=== PATIENT | female | born 1990 | race Caucasian/White ===

== ENCOUNTER 2023-04-06 03:47 | Inpatient (IN) | payer MEDICAID, OTHER ==
[~2023-04-06] VITALS: Ht 160 cm; Wt 81.6 kg
[2023-04-06] MEDS ORDERED: METH-818 PO (05:45)
[2023-04-06] MEDS ORDERED: OXYTOCIN 30 UNITS/500ML NS PMX 500 ML IV SCH ×2 (06:00→07:00)
[2023-04-06] MEDS ORDERED: METHYLERGONOVINE MALEATE 0.2 MG/ML IM PRN (06:00)
[2023-04-06] MEDS ORDERED: LACTATED RINGERS 1,000 ML IV SCH (06:00)
[2023-04-06 06:24] LABS: HEMATOCRIT. 30.4 % (36.0-48.0); HEMOGLOBIN. 10.5 g/dL (12.0-16.0); MEAN CORPUSCULAR HEMOGLOBIN 27.4 pg (28.0-32.0); MEAN CORPUSCULAR VOLUME 79.2 fL (81.0-99.0); MEAN PLATELET VOLUME 10.3 fl (7.4-10.4); PLATELET 202 x1000/uL (130-400); RED BLOOD CELL COUNT 3.84 mill/uL (4.2-5.4); RED CELL DISTRIBUTION WIDTH 14.1 % (11.6-14.6)
[2023-04-06] MEDS ORDERED: IBUPROFEN 400MG TABLET PO PRN (07:00)
[2023-04-06] MEDS ORDERED: IBUPROFEN 800MG TABLET PO PRN (07:00)
[2023-04-06] MEDS ORDERED: RHO(D) IMMUNE GLOBULIN 300 MCG/SYR IM PRN (07:00)
[2023-04-06 07:02] LABS: PARTIAL THROMBOPLASTIN TIME 25.6 sec (23.4-31.0); PROTHROMBIN TIME 10.3 sec (9.6-11.0)
[2023-04-06 08:36] LABS: HEPATITIS B SURFACE ANTIGEN NEGATIVE
[2023-04-06] MEDS ORDERED: AMPICILLIN 2,000 MG in SODIUM CHLORIDE 0.9% 100 ML IV SCH (09:00)
[2023-04-06] MEDS ORDERED: PRENATAL VIT/FE FUMARATE/FA TABLET PO SCH (09:00)
[2023-04-06] MEDS ORDERED: GENTAMICIN 80MG PREMIX 100 ML IV NR (09:00)
[2023-04-06 09:58] LABS: PLATELET ESTIMATE NORMAL
[2023-04-09] MEDS ORDERED: CEPH500T MT (09:06)
== END 2023-04-06 06:30 | disposition home or self-care (01) | DRG 560 ==
LOC: OBSVTOIN 03:47 → 8 EST LDRP 03:47
PROVIDERS: ADMIT Obstetrics & Gynecology; ATTEND Obstetrics & Gynecology
PROC: 10E0XZZ Delivery of Products of Conception, External Approach (ICD-10-PCS; principal; 2023-04-06)
DX: O80 Encounter for full-term uncomplicated delivery (principal); Z37.0 Single live birth; Z3A.24 24 weeks gestation of pregnancy
CPT/HCPCS: 36415; 85025; 86592; 86703; 86762; 86850; 86900; 87340; 88307; G0378; J0290; J1580; J7050; J7120